=== PATIENT | male | born 1965 | race Caucasian/White ===

== ENCOUNTER 2017-04-24 17:19 | Emergency (ER) | payer OTHER, MEDICARE ==
[~2017-04-24 17:19] MED LIST: ALPR0.5T8 PO; GABA250S5 PO; HYDR-308 PO; LEVE500T8 PO; VENL150T3 PO
[2017-04-24 17:45] LABS: BASOPHILS % (AUTO) 1.3 % (0.0-5.0); EOSINOPHILS % (AUTO) 1.4 % (0.0-8.0); HEMATOCRIT 39.6 % (42-54); LYMPHOCYTES % (AUTO) 39.6 % (21.0-51.0); MEAN CORPUSCULAR HEMOGLOBIN 33.8 pg (27.0-33.0); MEAN CORPUSCULAR HGB CONC 34.5 g/dL (32.0-36.0); MEAN CORPUSCULAR VOLUME 98.1 fL (79-99); MONOCYTES % (AUTO) 7.8 % (3.0-13.0); NEUTROPHILS % (AUTO) 49.9 % (40.0-77.0); PLATELET COUNT (AUTO) 348 K/uL (130-400); RED BLOOD CELL COUNT(AUTO) 4.03 MIL/uL (4.50-6.20); RED CELL DISTRIBUTION WIDTH 15.1 % (11.0-15.5); WHITE BLOOD COUNT (AUTO) 6.4 K/uL (4.8-10.8)
[2017-04-24] MEDS ORDERED: THIAMINE HCL 100 MG/ML 2ML VIAL ONE (17:48)
[2017-04-24] MEDS ORDERED: SODIUM CHLORIDE 0.9% 1000ML 1,000 ML IV ONE (17:48)
[2017-04-24] MEDS ORDERED: FOLIC ACID 5 MG/ML 10 ML VIAL ONE (17:49)
[2017-04-24 17:53] LABS: CREATININE 0.8 mg/dL (0.5-1.5)
[2017-04-24 17:57] LABS: POTASSIUM 2.8 mmol/L (3.5-5.1)
[2017-04-24] MEDS ORDERED: KETOROLAC TROMETHAMINE 30MG/ML ONE (18:05)
[2017-04-24] MEDS ORDERED: POTASSIUM BICARB/CIT AC 25 MEQ TABLET.EFF ONE (18:11)
[2017-04-24 19:36] LABS: APPEARANCE,URINE Clear (CLEAR); BILIRUBIN,URINE Negative (NEGATIVE); COLOR,URINE Yellow (YELLOW); GLUCOSE, URINE (UA) Negative (NEGATIVE); KETONES,URINE Trace mg/dL (NEGATIVE); LEUKOCYTE ESTERASE ,URINE Negative (NEGATIVE); NITRATE,URINE Negative (NEGATIVE); OCCULT BLOOD,URINE Small (NEGATIVE); PH,URINE 5.5 (5.0-8.0); PROTEIN,URINE POS 1+ (NEGATIVE)
[2017-04-24 19:43] LABS: AMPHET/METH SCREEN,URINE NEGATIVE (NEGATIVE); BARBITURATE SCREEN, URINE NEGATIVE (NEGATIVE); BENZODIAZEPINES SCREEN,URINE POSITIVE (NEGATIVE); CANNABINOID SCREEN,URINE NEGATIVE (NEGATIVE); COCAINE SCREEN,URINE NEGATIVE (NEGATIVE); OPIATE SCREEN,URINE NEGATIVE (NEGATIVE); PHENCYCLIDINE SCREEN,URINE NEGATIVE (NEGATIVE)
[2017-04-24 19:58] LABS: WBC,URINE 0-1 /HPF (0-1)
[2017-04-24 19:59] LABS: BACTERIA,URINE Few /HPF (None Seen); SQUAMOUS EPITHELIAL CELL,UR Rare /LPF (0-2); TRANSITIONAL EPI CELLS,URINE Few /LPF (None Seen)
== END 2017-04-25 05:58 | disposition short-term general hospital (02) ==
LOC: EDH 17:19
DX: F10.10 Alcohol abuse, uncomplicated (principal); Z88.6 Allergy status to analgesic agent; Z88.0 Allergy status to penicillin; Z72.0 Tobacco use; E87.6 Hypokalemia; Z98.890 Other specified postprocedural states
CPT/HCPCS: 36415; 80048; 80305; 81001; 83735; 84132; 85025; 93005; 96365; 96366; 96368; 96375; 99285; G0480 ×2; J1885; J3411; J3490; J7030

== ENCOUNTER 2020-05-26 15:17 | Emergency (ER) | payer OTHER, MEDICARE ==
[~2020-05-26 15:17] MED LIST changes: -HYDR-308 PO; +HYDR-4458 PO; +LEVE-43 PO; -LEVE500T8 PO
[2020-05-26 16:23] LABS: BASOPHILS % (AUTO) 0.7 % (0.0-5.0); EOSINOPHILS % (AUTO) 0.1 % (0.0-8.0); LYMPHOCYTES % (AUTO) 11.6 % (21.0-51.0); MEAN CORPUSCULAR HEMOGLOBIN 34.2 pg (27.0-33.0); MEAN CORPUSCULAR HGB CONC 34.3 g/dL (32.0-36.0); MEAN CORPUSCULAR VOLUME 99.8 fL (79-99); MONOCYTES % (AUTO) 6.2 % (3.0-13.0); NEUTROPHILS % (AUTO) 81.1 % (40.0-77.0); PLATELET COUNT (AUTO) 410 K/uL (130-400); RED BLOOD CELL COUNT(AUTO) 4.91 MIL/uL (4.50-6.20); RED CELL DISTRIBUTION WIDTH 13.1 % (11.0-15.5)
[2020-05-26 16:32] LABS: CREATININE 0.8 mg/dL (0.5-1.5); POTASSIUM 3.7 mmol/L (3.5-5.1)
[2020-05-26 16:36] LABS: ALBUMIN 4.1 g/dL (3.5-5.0); BILIRUBIN,TOTAL 0.2 mg/dL (0.2-1.0); TOTAL PROTEIN, SERUM 8.5 g/dL (6.0-8.3)
[2020-05-26 17:11] LABS: B-TYPE NATRIURETIC PEPTIDE 12 pg/mL (0-100)
== END 2020-05-26 18:27 | disposition left against medical advice (07) ==
LOC: EDH 15:17
DX: I60.9 Nontraumatic subarachnoid hemorrhage, unspecified (principal); I69.114 Frontal lobe and executive function deficit following nontraumatic intracerebral hemorrhage; F10.129 Alcohol abuse with intoxication, unspecified; G40.909 Epilepsy, unspecified, not intractable, without status epilepticus; Z88.2 Allergy status to sulfonamides; Z88.0 Allergy status to penicillin; Z72.0 Tobacco use; W18.39XA Other fall on same level, initial encounter; Y93.01 Activity, walking, marching and hiking; Y92.89 Other specified places as the place of occurrence of the external cause; Y99.8 Other external cause status
CPT/HCPCS: 36415; 70450; 72125; 72131; 80053; 83690; 83880; 84484; 85025; 93005; 99291

== ENCOUNTER → 2021-02-02 | Outpatient (CLI) | payer OTHER, MEDICARE | END | disposition home or self-care (01) | LOC: RAH 08:44 | PROVIDERS: ATTEND Family Medicine | DX: I34.0 Nonrheumatic mitral (valve) insufficiency (principal) | CPT/HCPCS: 93306; 93356; 93970 ==

== ENCOUNTER 2021-02-21 07:53 | Emergency (ER) | payer OTHER, MEDICARE ==
[~2021-02-21] VITALS: Ht 182.9 cm; Wt 60.3 kg
[2021-02-21] MEDS ORDERED: DIPH,PERTUSS(ACELL),TET VAC/PF 0.5 ML VIAL IM SCH (08:30)
[2021-02-21 08:31] LABS: BASOPHILS % (AUTO) 0.7 % (0.0-5.0); EOSINOPHILS % (AUTO) 0.3 % (0.0-8.0); HEMATOCRIT 44.3 % (42-54); LYMPHOCYTES % (AUTO) 8.3 % (21.0-51.0); MEAN CORPUSCULAR HEMOGLOBIN 33.6 pg (27.0-33.0); MEAN CORPUSCULAR HGB CONC 34.3 g/dL (32.0-36.0); MONOCYTES % (AUTO) 8.5 % (3.0-13.0); NEUTROPHILS % (AUTO) 81.6 % (40.0-77.0); PLATELET COUNT (AUTO) 196 K/uL (130-400); RED BLOOD CELL COUNT(AUTO) 4.52 MIL/uL (4.50-6.20); RED CELL DISTRIBUTION WIDTH 13.5 % (11.0-15.5); WHITE BLOOD COUNT (AUTO) 16.1 K/uL (4.8-10.8)
[2021-02-21 08:46] LABS: ALBUMIN 3.4 g/dL (3.5-5.0); BILIRUBIN,TOTAL 1.6 mg/dL (0.2-1.0); CREATININE 1.3 mg/dL (0.5-1.5); TOTAL PROTEIN, SERUM 7.3 g/dL (6.0-8.3)
[2021-02-21 08:51] LABS: POTASSIUM 2.8 mmol/L (3.5-5.1)
[2021-02-21] MEDS ORDERED: POTASSIUM BICARB/CIT AC 25 MEQ TABLET.EFF ONE (08:52)
[2021-02-21 10:42] LABS: APPEARANCE,URINE Clear (CLEAR); BILIRUBIN,URINE Moderate (NEGATIVE); COLOR,URINE Dark Yellow (YELLOW); GLUCOSE, URINE (UA) Negative (NEGATIVE); KETONES,URINE 15 mg/dL (NEGATIVE); LEUKOCYTE ESTERASE ,URINE Trace (NEGATIVE); NITRATE,URINE Negative (NEGATIVE); OCCULT BLOOD,URINE Negative (NEGATIVE); PROTEIN,URINE POS 2+ mg/dL (NEGATIVE)
[2021-02-21 10:53] LABS: BACTERIA,URINE Rare /HPF (None Seen); RBC,URINE 0-1 /HPF (0-1); SQUAMOUS EPITHELIAL CELL,UR Rare /HPF (0-2); WBC,URINE 0-1 /HPF (0-1)
[2021-02-21] MEDS ORDERED: METH4TAB PO (11:21)
[2021-02-21] MEDS ORDERED: IBUP-2070 PO (11:21)
[2021-02-21 11:41] VITALS: BP 138/78
== END 2021-02-21 11:40 | disposition home or self-care (01) ==
LOC: EDH 07:53
DX: S01.81XA Laceration without foreign body of other part of head, initial encounter (principal); M25.551 Pain in right hip; R41.82 Altered mental status, unspecified; I10 Essential (primary) hypertension; Z88.0 Allergy status to penicillin; Z88.5 Allergy status to narcotic agent; Z79.1 Long term (current) use of non-steroidal anti-inflammatories (NSAID); Z79.52 Long term (current) use of systemic steroids; Z79.899 Other long term (current) drug therapy; Z86.73 Personal history of transient ischemic attack (TIA), and cerebral infarction without residual deficits; Z85.828 Personal history of other malignant neoplasm of skin; W18.39XA Other fall on same level, initial encounter; Y92.89 Other specified places as the place of occurrence of the external cause; Y93.89 Activity, other specified; Y99.8 Other external cause status
CPT/HCPCS: 36415; 70450; 71045; 72170; 73552; 73562; 73620; 80053; 80177; 81001; 85025; 90471; 90715; 93005

== ENCOUNTER → 2021-04-02 | Outpatient (CLI) | payer OTHER, MEDICARE ==
[~2021-04-02] MED LIST changes: +IBUP-2070 PO; +IOHEXOL-350 50ML VIAL IV ONE; +METH4TAB PO
== END | disposition home or self-care (01) ==
LOC: OIH 07:38
PROVIDERS: ATTEND Family Medicine
DX: I77.811 Abdominal aortic ectasia (principal); I70.0 Atherosclerosis of aorta; I70.293 Other atherosclerosis of native arteries of extremities, bilateral legs
CPT/HCPCS: 75635; Q9967

== ENCOUNTER → 2021-08-24 | Outpatient (CLI) | payer OTHER, MEDICARE ==
[~2021-08-24] MED LIST changes: -IOHEXOL-350 50ML VIAL IV ONE
[2021-08-24 12:48] LABS: BASOPHILS % (AUTO) 0.8 % (0.0-5.0); EOSINOPHILS % (AUTO) 1.5 % (0.0-8.0); HEMATOCRIT 43.1 % (42-54); LYMPHOCYTES % (AUTO) 20.1 % (21.0-51.0); MEAN CORPUSCULAR HEMOGLOBIN 30.8 pg (27.0-33.0); MEAN CORPUSCULAR HGB CONC 32.5 g/dL (32.0-36.0); MEAN CORPUSCULAR VOLUME 94.9 fL (79-99); MONOCYTES % (AUTO) 9.9 % (3.0-13.0); NEUTROPHILS % (AUTO) 67.4 % (40.0-77.0); PLATELET COUNT (AUTO) 366 K/uL (130-400); RED BLOOD CELL COUNT(AUTO) 4.54 MIL/uL (4.50-6.20); RED CELL DISTRIBUTION WIDTH 14.6 % (11.0-15.5); WHITE BLOOD COUNT (AUTO) 10.9 K/uL (4.8-10.8)
[2021-08-24 12:52] LABS: POTASSIUM 4.1 mmol/L (3.5-5.1)
[2021-08-24 13:09] LABS: INR 0.93 (0.85-1.15)
[2021-08-24 13:11] LABS: PARTIAL THROMBOPLASTIN TIME 29.8 SEC (26.3-35.5)
== END | disposition home or self-care (01) ==
LOC: LAB 09:36
PROVIDERS: ATTEND Internal Medicine Cardiovascular Disease
DX: I10 Essential (primary) hypertension (principal); I73.9 Peripheral vascular disease, unspecified; G40.909 Epilepsy, unspecified, not intractable, without status epilepticus; G89.29 Other chronic pain; M79.605 Pain in left leg; M79.604 Pain in right leg; R60.9 Edema, unspecified; Z79.82 Long term (current) use of aspirin; Z79.02 Long term (current) use of antithrombotics/antiplatelets; Z79.899 Other long term (current) drug therapy
CPT/HCPCS: 36415; 80048; 85025; 85610; 85730

== ENCOUNTER 2021-09-24 16:05 | Emergency (ER) | payer OTHER, MEDICARE ==
[~2021-09-24] VITALS: Ht 182.9 cm; Wt 68.0 kg
[2021-09-24 16:43] VITALS: BP 163/98
[2021-09-24 16:44] LABS: APPEARANCE,URINE Clear (CLEAR); BILIRUBIN,URINE Small (NEGATIVE); COLOR,URINE Dark Yellow (YELLOW); GLUCOSE, URINE (UA) Negative (NEGATIVE); KETONES,URINE Trace mg/dL (NEGATIVE); LEUKOCYTE ESTERASE ,URINE Trace (NEGATIVE); NITRATE,URINE Negative (NEGATIVE); OCCULT BLOOD,URINE Negative (NEGATIVE); PROTEIN,URINE POS 2+ mg/dL (NEGATIVE)
[2021-09-24 16:50] LABS: BASOPHILS % (AUTO) 2.2 % (0.0-5.0); EOSINOPHILS % (AUTO) 0.3 % (0.0-8.0); HEMATOCRIT 40.8 % (42-54); LYMPHOCYTES % (AUTO) 23.9 % (21.0-51.0); MEAN CORPUSCULAR HEMOGLOBIN 30.2 pg (27.0-33.0); MEAN CORPUSCULAR HGB CONC 33.6 g/dL (32.0-36.0); MEAN CORPUSCULAR VOLUME 89.9 fL (79-99); NEUTROPHILS % (AUTO) 63.3 % (40.0-77.0); PLATELET COUNT (AUTO) 301 K/uL (130-400); RED BLOOD CELL COUNT(AUTO) 4.54 MIL/uL (4.50-6.20); RED CELL DISTRIBUTION WIDTH 14.4 % (11.0-15.5); WHITE BLOOD COUNT (AUTO) 6.8 K/uL (4.8-10.8)
[2021-09-24] MEDS ORDERED: ACETAMINOPHEN 500 MG TABLET ONE (16:56)
[2021-09-24] MEDS ORDERED: ACETAMINOPHEN 500 MG TABLET PO SCH (17:00)
[2021-09-24 17:10] LABS: CREATININE 0.8 mg/dL (0.5-1.5); POTASSIUM 3.6 mmol/L (3.5-5.1)
[2021-09-24 17:31] LABS: RBC,URINE 0-1 /HPF (0-1)
[2021-09-24 17:32] LABS: BACTERIA,URINE Rare /HPF (None Seen); MUCUS,URINE Rare LPF (None Seen); SQUAMOUS EPITHELIAL CELL,UR Rare /HPF (0-2)
[2021-09-24] MEDS ORDERED: CEFTRIAXONE 1G VIAL ONE (17:42)
[2021-09-24 17:49] LABS: ALBUMIN 3.6 g/dL (3.5-5.0)
[2021-09-24] MEDS ORDERED: PHENAZOPYRIDINE HCL 200 MG TABLET PO SCH (18:00)
[2021-09-24] MEDS ORDERED: CEFTRIAXONE 1G VIAL IVP SCH (18:00)
[2021-09-24 18:12] LABS: BILIRUBIN,TOTAL 0.7 mg/dL (0.2-1.0); TOTAL PROTEIN, SERUM 7.6 g/dL (6.0-8.3)
[2021-09-24] MEDS ORDERED: CEPH500B PO (18:23)
[2021-09-24] MEDS ORDERED: PHEN-847 PO (18:23)
== END 2021-09-24 18:42 | disposition home or self-care (01) ==
LOC: EDH 16:05
DX: N39.0 Urinary tract infection, site not specified (principal); I10 Essential (primary) hypertension; Z88.5 Allergy status to narcotic agent; Z88.0 Allergy status to penicillin; Z79.899 Other long term (current) drug therapy; Z98.890 Other specified postprocedural states
CPT/HCPCS: 36415; 51702; 80053; 81001; 84484; 85025; 96374; 99284; J0696

== ENCOUNTER → 2022-09-25 | Outpatient (CLI) | payer OTHER, MEDICARE ==
[~2022-09-25] MED LIST changes: -ALPR0.5T8 PO; +CITA-107 PO; +FURO20TA4 PO; -GABA250S5 PO; +GABA600T10 PO; -HYDR-4458 PO; +HYDROMORPHONE PO; -IBUP-2070 PO; -LEVE-43 PO; +LEVE750T66 PO; +METH-811 PO; -METH4TAB PO; +METO-408 PO; +NALO4SPR NS; +ROSU20TA73 PO; -VENL150T3 PO; +ZOLP10TA2 PO
== END | disposition home or self-care (01) ==
LOC: RAH 12:46
PROVIDERS: ATTEND Family Medicine
DX: I73.9 Peripheral vascular disease, unspecified (principal)
CPT/HCPCS: 93925

== ENCOUNTER → 2023-08-22 | Outpatient (CLI) | payer OTHER, MEDICARE | END | disposition home or self-care (01) | LOC: RAH 13:49 | PROVIDERS: ATTEND Family Medicine | DX: M48.061 Spinal stenosis, lumbar region without neurogenic claudication (principal); M47.816 Spondylosis without myelopathy or radiculopathy, lumbar region; I71.43 Infrarenal abdominal aortic aneurysm, without rupture | CPT/HCPCS: 72131 ==

== ENCOUNTER → 2024-10-07 | Outpatient (CLI) | payer OTHER, MEDICAID ==
[~2024-10-07] MED LIST changes: +GABA-1405 PO; -GABA600T10 PO; -LEVE750T66 PO; +LEVE750T85 PO; -ROSU20TA73 PO; +ROSU20TA98 PO; +ZOLP-685 PO; -ZOLP10TA2 PO
--- NOTE | 2024-10-07 10:59 | HMCIMG ---
US AORTA LIMITED REASON: Encounter for screening for cardiovascular disorders. COMPARISON: None TECHNIQUE: Abdominal aorta ultrasound study was performed. FINDINGS: Proximal portion of the abdominal aorta measures 2 x 1.8 cm, midportion measures 2.5 x 1.8 cm, distal portion measures 3.6 x 3.3 cm. Right iliac artery measures 11 x 14 mm. Left iliac artery measures 11 x 11 mm. There is atherosclerosis. IMPRESSION: There is infrarenal abdominal aortic aneurysm measuring 3.6 x 3.3 cm.
== END | disposition home or self-care (01) ==
LOC: RAH 09:31
PROVIDERS: ATTEND Internal Medicine
DX: I71.43 Infrarenal abdominal aortic aneurysm, without rupture (principal); Z13.6 Encounter for screening for cardiovascular disorders; I70.90 Unspecified atherosclerosis
CPT/HCPCS: 76775